=== PATIENT | male | born 1950 | race Caucasian/White ===

== ENCOUNTER 2016-12-16 05:32 | Inpatient (IN) | payer MEDICARE, OTHER, MEDICAID ==
[2016-12-16] MEDS ORDERED: Dextrose 5%-Lactated Ringers 1,000 ML IV SCH (06:00)
[2016-12-16] MEDS ORDERED: Meropenem 500 MG SDV ONE (06:55)
[2016-12-16] MEDS ORDERED: Bupivacaine 0.5%/EPINEPHrine 1:200,000 50 ML MDV ONE (06:55)
[2016-12-16] MEDS ORDERED: Ondansetron 4 MG/2 ML SDV ONE (06:58)
[2016-12-16] MEDS ORDERED: Rocuronium 50 MG/5 ML Vial ONE (06:58)
[2016-12-16] MEDS ORDERED: Propofol 200 MG/20 ML SDV ONE (06:58)
[2016-12-16] MEDS ORDERED: Dexamethasone 4 MG/ML SDV ONE (06:58)
[2016-12-16] MEDS ORDERED: fentaNYL 250 MCG/5 ML SDV ONE (06:58)
[2016-12-16] MEDS ORDERED: Neostigmine Methylsulfate 1 MG/ML 5 ML Syringe ONE (06:58)
[2016-12-16] MEDS ORDERED: Succinylcholine/Normal Saline 200 MG/10 ML Syringe ONE (06:58)
[2016-12-16] MEDS ORDERED: Albuterol/Ipratropium 3.0-0.5 MG/3 ML Neb Soln NEB ONE (07:00)
[2016-12-16] MEDS ORDERED: ceFAZolin 2 GM in Sodium Chloride 0.9% 50 ML IV ONE (07:30)
[2016-12-16] MEDS ORDERED: Lidocaine 1% 2 ML ONE (07:51)
[2016-12-16] MEDS ORDERED: Sugammadex Sodium 200 MG/2 ML VIAL ONE (09:26)
[2016-12-16] MEDS ORDERED: Insulin Aspart 100 Units/ML 3 ML Pen SUBCUT ONE (09:45)
[2016-12-16] MEDS ORDERED: 50% Dextrose in Water 50 ML Syringe IVPUSH PRN (09:50)
[2016-12-16] MEDS ORDERED: Glucose Gel 15 GM in 37.5 GM Tube PO PRN (09:50)
[2016-12-16] MEDS ORDERED: Glucagon,Human Recombinant 1 MG Vial IM PRN (09:50)
[2016-12-16] MEDS ORDERED: Acetaminophen/oxyCODONE 325-5 MG Tab PO PRN (10:52)
[2016-12-16] MEDS ORDERED: hydrOXYzine HCl 100 MG/2 ML SDV IM PRN (10:53)
[2016-12-16] MEDS ORDERED: Ondansetron 4 MG/2 ML SDV IVPUSH PRN (10:54)
[2016-12-16] MEDS ORDERED: hydrOXYzine HCl 25 MG Tab PO PRN (10:54)
[2016-12-16] MEDS: Ibuprofen 400 MG Tab PO SCH ×2 (10:58→16:29)
[2016-12-16] MEDS ORDERED: Albuterol/Ipratropium 3.0-0.5 MG/3 ML Neb Soln INH PRN (11:01)
[2016-12-16] MEDS: oxyCODONE 5 MG Tab PO PRN ×2 (11:03→20:00)
[2016-12-16] MEDS ORDERED: Cyclobenzaprine 10 MG Tab PO PRN (11:04)
[2016-12-16] MEDS ORDERED: Nitroglycerin 0.4 MG Tab.SL SL PRN (11:07)
[2016-12-16] MEDS: Albuterol/Ipratropium 3.0-0.5 MG/3 ML Neb Soln INH SCH ×3 (11:59→21:22)
[2016-12-16] MEDS: Furosemide 40 MG Tab PO SCH (13:02)
[2016-12-16] MEDS: Insulin Aspart 100 Units/ML 3 ML Pen SUBCUT PRN ×2 (13:03→16:30)
[2016-12-16] MEDS: Dextrose 5%-Lactated Ringers 1,000 ML IV SCH ×2 (13:11→19:52)
[2016-12-16] MEDS: ceFAZolin 2 GM in Sodium Chloride 0.9% 50 ML IV SCH ×2 (14:40→21:41)
[2016-12-16] MEDS: Acetaminophen 325 MG Tab PO SCH ×2 (15:53→21:07)
--- NOTE | 2016-12-16 18:56 | OR ---
DATE OF PROCEDURE: 12/16/2016 PREOPERATIVE DIAGNOSIS: Incarcerated umbilical hernia. POSTOPERATIVE DIAGNOSIS: Incarcerated umbilical hernia. OPERATIVE PROCEDURE: Laparoscopic repair of incarcerated umbilical hernia with mesh ([id number]). ANESTHESIA: General. ASSISTANT FITNESS MANAGER: Kassandra Kelly PA-C. INDICATION FOR PROCEDURE: This is a 66-year-old male presenting with increasingly symptomatic umbilical hernia that has not been reducible. Plan is to proceed with a laparoscopic or if necessary open repair of hernia with mesh. Potential risks including bleeding, infection, injury to underlying viscera, problems with mesh becoming infected or the hernia recurring as well as possibility of cardiopulmonary, septic, or hemorrhagic complications leading to were all discussed, and the patient wishes to proceed. DETAILS OF PROCEDURE: The patient was taken to the operating room and placed in a supine position. After general endotracheal anesthesia was induced, a Chappell catheter was inserted and the abdomen prepped and draped. In the left lateral mid abdomen, a transverse incision was made and the peritoneal cavity entered under direct vision with Optiview trocar, inflated to 15 mmHg pressure with CO2. Laparoscope was then reinserted. No underlying trocar insertion site injuries were seen. Following this, 5 mm trocar was placed in the left lower quadrant as well as the left upper quadrant and a general exploration undertaken. T The patient was noted to have a striking hepatomegaly likely related to underlying obesity and type 2 diabetes and otherwise had a very thick omentum consistent with those findings as well. Otherwise, there is an omentum incarcerated with the hernia. The hernia was then pushed downward and using blunt dissection as well as external pressure, the hernia was reduced. The hernia sac and some of the incarcerated omentum were then excised with a Harmonic scalpel and delivered from the field. A 15.[address] hernia mesh with the inflatable balloon was then selected and soaked in antibiotic-containing saline solution and placed into the intraperitoneal location. Small stab wound was made just below the umbilicus and brought through the center of the umbilicus and the inflation catheter of the mesh system was then pulled up and the balloon inflated, pushing the mesh up against the abdominal wall. Mesh was then affixed with 2-0 circumferential sets of absorbable tacking screws with good mesh fixation was evident. The balloon catheter was then deflated and the balloon was withdrawn. Good fixation was confirmed. No additional problems were noted at this point and the trocars removed. The fascia at the 12 mm site was closed with 0 Vicryl stitch and the skin with 4-0 Vicryl skin stitch. Dressing was applied. The patient was taken to the recovery room in satisfactory condition. There were no evident complications. Physician senior it assistant, Kassandra Kelly, played an essential role in assisting in this case, helping to position the patient, retract structures as needed, as well as suturing and cutting sutures when indicated. Her presence improved patient safety and decreased operative time. Edi Lamas MD /[id number]
[2016-12-16] MEDS ORDERED: Labetalol 100 MG Tab PO SCH (21:00)
[2016-12-16] MEDS ORDERED: Lidocaine 2% Jelly 10 ML Urojet MUCMEM ONE (21:00)
[2016-12-16] MEDS: buPROPion 150 MG Tab.ER PO SCH (21:06)
[2016-12-16] MEDS: Naltrexone 50 MG Tab PO SCH (21:06)
[2016-12-16] MEDS: Primidone 50 MG Tab PO SCH (21:08)
[2016-12-16] MEDS: Simvastatin 20 MG Tab PO SCH (21:09)
[2016-12-16] MEDS ORDERED: Labetalol 100 MG Tab PO ONE (21:17)
[2016-12-17] MEDS: Ibuprofen 400 MG Tab PO SCH ×5 (01:18→22:28)
[2016-12-17] MEDS: Acetaminophen 325 MG Tab PO SCH ×4 (04:10→22:27)
[2016-12-17] MEDS: Dextrose 5%-Lactated Ringers 1,000 ML IV SCH (04:11)
[2016-12-17] MEDS: ceFAZolin 2 GM in Sodium Chloride 0.9% 50 ML IV SCH (05:44)
[2016-12-17] MEDS ORDERED: Nitroglycerin 0.4 MG Tab.SL SL PRN (07:16)
[2016-12-17] MEDS ORDERED: Cyclobenzaprine 10 MG Tab PO PRN (07:16)
[2016-12-17] MEDS: Albuterol/Ipratropium 3.0-0.5 MG/3 ML Neb Soln INH SCH ×4 (07:16→20:31)
[2016-12-17] MEDS ORDERED: Triamcinolone Acetonide 0.1% Crm 15 GM Tube TOP PRN (07:16)
[2016-12-17] MEDS ORDERED: Dextrose 5%-Lactated Ringers 1,000 ML IV SCH (07:23)
[2016-12-17] MEDS: Pantoprazole 40 MG Tab.CR PO SCH (07:55)
[2016-12-17] MEDS ORDERED: Non-Formulary Medication 1 Each (Bupropion Hcl [Wellbutrin Xl] 150 MG) PO SCH (09:00)
[2016-12-17] MEDS ORDERED: Aspirin 81 MG Tab.EC PO SCH (09:00)
[2016-12-17] MEDS ORDERED: Losartan 50 MG Tab PO SCH (09:00)
[2016-12-17] MEDS ORDERED: Tamsulosin 0.4 MG Cap.ER PO SCH (09:00)
[2016-12-17] MEDS ORDERED: Furosemide 40 MG Tab PO SCH ×2 (09:00→12:00)
[2016-12-17] MEDS ORDERED: Allopurinol 100 MG Tab PO SCH (09:00)
[2016-12-17] MEDS ORDERED: Primidone 50 MG Tab PO SCH (09:00)
[2016-12-17] MEDS ORDERED: Finasteride 5 MG Tab PO SCH (09:00)
[2016-12-17] MEDS ORDERED: amLODIPine 10 MG Tab PO SCH (09:00)
[2016-12-17] MEDS ORDERED: Non-Formulary Medication 1 Each (Omeprazole [Prilosec] 20 MG) PO SCH (09:00)
[2016-12-17] MEDS: Magnesium Sulfate/Water 2 GM in Premix Bag 1 BAG IV SCH ×3 (09:15→20:31)
[2016-12-17] MEDS: Hydrochlorothiazide 25 MG Tab PO SCH (09:16)
[2016-12-17] MEDS: Naltrexone 50 MG Tab PO SCH ×2 (09:16→20:34)
[2016-12-17] MEDS: Labetalol 100 MG Tab PO SCH ×2 (09:17→21:05)
[2016-12-17] MEDS: Tamsulosin 0.4 MG Cap.ER PO SCH (09:17)
[2016-12-17] MEDS: amLODIPine 10 MG Tab PO SCH (09:18)
[2016-12-17] MEDS: Losartan 50 MG Tab PO SCH (09:18)
[2016-12-17] MEDS: Folic Acid 1 MG Tab PO SCH (09:19)
[2016-12-17] MEDS: Finasteride 5 MG Tab PO SCH (09:20)
[2016-12-17] MEDS: buPROPion 150 MG Tab.ER PO SCH ×2 (09:20→20:36)
[2016-12-17] MEDS: Furosemide 80 MG Tab PO SCH (09:21)
[2016-12-17] MEDS: Allopurinol 100 MG Tab PO SCH (09:22)
[2016-12-17] MEDS: Primidone 50 MG Tab PO SCH ×2 (09:22→20:33)
[2016-12-17] MEDS: Aspirin 81 MG Tab.EC PO SCH (09:23)
[2016-12-17] MEDS ORDERED: Albuterol 8 GM Inhaler INH SCH (10:00)
--- NOTE | 2016-12-17 10:15 | PN ---
DATE OF SERVICE: 12/17/2016 SUBJECTIVE: Suraj is postoperative day one. His pain is controlled. He has been up ambulating. He did have a blood pressure of 99/65, so his labetalol was decreased to 50 mg one time and in the morning. He was unable to void, a catheter was put in, and he had initially 800 out, a total of 2900 out, and intake was 4498. REVIEW OF SYSTEMS: Remainder of review of systems negative for any pertinent positives and negatives. OBJECTIVE: GENERAL: Suraj Guo is a 66-year-old male. VITAL SIGNS: TPR 98.2, 83, 16, blood pressure 99/65. HEENT: Negative. NECK: Supple. HEART: Regular rate and rhythm. LUNGS: Clear. ABDOMEN: Dressings dry and intact. Abdominal binder is on. EXTREMITIES: Without peripheral edema. LABORATORY DATA: Labs reveal a potassium of 3.8, creatinine 1.8, estimated glomerular filtration is 38, BNP 546, and magnesium is 1.4. ASSESSMENT: Laparoscopic repair of umbilical hernia with mesh. PLAN: Remove Chappell on 12/18/2016 at 0300, labetalol (Lopressor) 50 mg b.i.d. check CBC, CMP, BNP, and hemoglobin A1c in a.m. Good pulmonary toilet encouraged. We will evaluate p.r.n. or in a.m. Kassandra Kelly PA-C /[id number]
[2016-12-17] MEDS: Furosemide 40 MG Tab PO SCH (11:25)
[2016-12-17] MEDS: oxyCODONE 5 MG Tab PO PRN (11:25)
[2016-12-17] MEDS: Simvastatin 20 MG Tab PO SCH (20:36)
[2016-12-18] MEDS: Magnesium Sulfate/Water 2 GM in Premix Bag 1 BAG IV SCH ×4 (02:38→14:35)
[2016-12-18] MEDS: Acetaminophen 325 MG Tab PO SCH ×3 (04:43→17:08)
[2016-12-18] MEDS: Ibuprofen 400 MG Tab PO SCH ×3 (04:43→17:08)
[2016-12-18] MEDS: Albuterol/Ipratropium 3.0-0.5 MG/3 ML Neb Soln INH SCH ×3 (07:16→15:13)
--- NOTE | 2016-12-18 09:03 | DISCH ---
ADMISSION DIAGNOSES: 1. Umbilical hernia. 2. Lumbar stenosis. 3. Hypertension. 4. Chronic pain. 5. Hyperlipidemia. 6. Gout. 7. Coronary artery disease. 8. Fluid retention. 9. Chronic urinary retention, self-cathing at home. DISCHARGE DIAGNOSES: Laparoscopic repair of umbilical hernia with mesh on 12/16/2016. HISTORY: Suraj Guo is a 66-year-old male with an umbilical hernia. After preoperative evaluation and discussion of possible risks and possible complications, he wished to proceed with surgical procedure. HOSPITAL COURSE: Suraj had his surgery on 12/16/2016. On postop day #1, he was not able to void. A catheter was put back in and it was removed at 0300 hours this morning. At the time of dictation, 0810 hours, he was not able to void, but this is not uncommon for him. His pain was managed. His activity was good. His oral intake was adequate, and he was able to be discharged to home later today. PHYSICAL EXAMINATION: GENERAL: Suraj Guo is a 66-year-old male. VITAL SIGNS: He is 5 feet 4.96 inches. Weight is 253 pounds. TPR is 98.1, 86, 18, and blood pressure 112/69. HEENT: Negative. NECK: Supple. HEART: Regular rate and rhythm. LUNGS: Clear. ABDOMEN: Dressings dry and intact. He does have the pressure dressing over his umbilical hernia site. Abdominal binder is on. EXTREMITIES: Revealed trace peripheral edema. DISPOSITION: Discharged to home with Home Health care nurse, which he already has in place. CONDITION: Stable and improving. HOME MEDICATIONS: Oxycodone 5 to 10 mg p.o. q.4 hours p.r.n. pain, #30. He is to discontinue his labetalol. Blood pressures were low during hospitalization. He is to resume all his other home medications. Recommend not taking the Percocet while he is on the oxycodone. He is on a pain contract, but he is out of the Percocet at home and uses [facility], so it will be over, he thinks, about a week before it will come in. FOLLOWUP APPOINTMENT: With Kassandra Kelly PA-C, on 12/27/2016 at 10 a.m. DIET: Usual diet as tolerated. Drink 8 to 10 glasses of water a day. ACTIVITY: No lifting greater than 10 pounds. Walk 6 times short distances in your home. Driving, do not drive while on pain medication. May shower. Keep site clean and dry. Wear a pressure dressing, a rolled up washcloth over your hernia site with an abdominal binder over the washcloth for 8 weeks. DISCHARGE INSTRUCTIONS: Notify provider of fever, swelling, redness, drainage, nausea, or vomiting. Special Instructions: Use incentive spirometer 10 times every hour while awake for 2 weeks and then as tolerated. If unable to void, he may go home and self-cath as he has been instructed or to leave the Chappell catheter in until Tuesday lead handler and remove it at that time and then if unable to void, to follow up in clinic.
[2016-12-18] MEDS: Tamsulosin 0.4 MG Cap.ER PO SCH (09:11)
[2016-12-18] MEDS: buPROPion 150 MG Tab.ER PO SCH (09:11)
[2016-12-18] MEDS: Allopurinol 100 MG Tab PO SCH (09:11)
[2016-12-18] MEDS: Naltrexone 50 MG Tab PO SCH (09:11)
[2016-12-18] MEDS: Aspirin 81 MG Tab.EC PO SCH (09:12)
[2016-12-18] MEDS: Primidone 50 MG Tab PO SCH (09:12)
[2016-12-18] MEDS: Furosemide 80 MG Tab PO SCH (09:12)
[2016-12-18] MEDS: Pantoprazole 40 MG Tab.CR PO SCH (09:12)
[2016-12-18] MEDS: Hydrochlorothiazide 25 MG Tab PO SCH (09:13)
[2016-12-18] MEDS: Folic Acid 1 MG Tab PO SCH (09:13)
[2016-12-18] MEDS: Labetalol 100 MG Tab PO SCH (09:14)
[2016-12-18] MEDS: Losartan 50 MG Tab PO SCH (09:14)
[2016-12-18] MEDS: amLODIPine 10 MG Tab PO SCH (09:15)
[2016-12-18] MEDS: Finasteride 5 MG Tab PO SCH (09:15)
[2016-12-18] MEDS: Bacitracin Oint 28.35 GM Tube TOP SCH ×2 (10:11→14:21)
[2016-12-18] MEDS: Furosemide 40 MG Tab PO SCH (13:06)
[2016-12-18 15:42] VITALS: BP 92/53
== END 2016-12-18 17:15 | disposition home health service (06) | DRG 355 ==
LOC: JP.MS 05:32 → JP.SDS 05:33 → JP.2SS 09:10 → EDSTATUS 10:30
PROVIDERS: ADMIT Surgery; ATTEND Surgery
PROC: 0WUF4JZ Supplement Abdominal Wall with Synthetic Substitute, Percutaneous Endoscopic Approach (ICD-10-PCS; principal; 2016-12-16)
DX: K42.0 Umbilical hernia with obstruction, without gangrene (principal); M48.06 Spinal stenosis, lumbar region; I10 Essential (primary) hypertension; G89.29 Other chronic pain; E78.5 Hyperlipidemia, unspecified; I25.10 Atherosclerotic heart disease of native coronary artery without angina pectoris; M10.9 Gout, unspecified; R60.9 Edema, unspecified; R33.9 Retention of urine, unspecified; E11.9 Type 2 diabetes mellitus without complications; J44.9 Chronic obstructive pulmonary disease, unspecified; R16.0 Hepatomegaly, not elsewhere classified; E66.9 Obesity, unspecified; G47.33 Obstructive sleep apnea (adult) (pediatric); Z79.899 Other long term (current) drug therapy; Z88.8 Allergy status to other drugs, medicaments and biological substances; Z87.891 Personal history of nicotine dependence
CPT/HCPCS: 36415; 80048; 80053; 82962; 83036; 83735; 83880; 84100; 85027; 88302; 94640; 94640-76; 94762; A9270-GY; C1781; J0131; J0690; J1100; J2185; J2405; J2704; J3010; J3475; J7042; J7050; J7620